=== PATIENT | female | born 1955 | race Caucasian/White ===

== ENCOUNTER → 2017-03-25 | Outpatient (CLI) | payer MEDICAID ==
[~2017-03-25] MED LIST: ADVAIR 500-501 EACH INH; DALIRESP500 MCG PO; DELTASONE1 MG PO; DITROPAN XL10 MG PO; ECOTRIN325 MG PO; EFFEXOR75 MG PO; OXYGEN M-15 INH; PAMELOR25 MG PO; PRILOSEC20 MG PO; PROLIA60 MG/ML SUB-Q; PROVENTIL OR V6.7 GM INH; RISPERDAL2 MG PO; WELLBUTRIN XL150 M1 PO; ZESTRIL2.5 MG PO
== END ==
LOC: LGSMG 15:33
DX: B18.2 Chronic viral hepatitis C (principal)

== ENCOUNTER → 2017-04-03 | Outpatient (CLI) | payer MEDICAID | END | disposition disaster alternative care site (69) | LOC: GRAD 09:41 | DX: B19.20 Unspecified viral hepatitis C without hepatic coma (principal) ==

== ENCOUNTER 2017-06-13 14:58 | Emergency (ER) | payer MEDICAID ==
--- NOTE | ~2017-06-13 | ER ---
PATIENT'S NAME: FRANCINE BRANCH [facility] AGE: 61 Y [address] ROOM: [place] [address] LOCATION: [facility] ADMIT DATE: 06/13/2017 ER/Outpatient Report DISCHARGE DATE: 06/13/2017 FAMILY PHYSICIAN: Brent Marques MD ATTENDING PHYSICIAN: Pauly Stone TIME SEEN: 1520 hours. CHIEF COMPLAINT: Left knee pain. HISTORY OF PRESENT ILLNESS: The patient is a 61-year-old female who states that she fell yesterday, hitting her dorsal knee on the floor. She said it took her a while to get up, but she has been able to bear weight. ALLERGIES: PENICILLIN. CURRENT MEDICATIONS: See her home medications. PAST MEDICAL HISTORY: Includes COPD, history of hepatitis cirrhosis, breast cancer, dependent, history of cervical cancer, right mastectomy. SOCIAL HISTORY: Nonsmoker. She does live alone. Her daughter and granddaughter were with her. REVIEW OF SYSTEMS: HEAD/ENT: No complaints of head or neck pain. RESPIRATORY/CARDIOVASCULAR: Has oxygen on. MUSCULOSKELETAL: Includes dorsal right knee pain. OBJECTIVE FINDINGS: VITAL SIGNS: Blood pressure 146/95, her temperature is 97.1, pulse 109, respiratory rate 20, and O2 sats 96%. GENERAL APPEARANCE: White female. She is alert and cooperative. EXTREMITIES: Exam of her left knee appears to have a slight effusion, quite tender over the patella. Range of motion is somewhat limited. LABORATORY DATA AND X-RAYS: X-rays including sunrise view had no obvious fracture. PATIENT'S NAME: FRANCINE BRANCH [facility] AGE: 61 Y [address] ROOM: [place] [address] LOCATION: [facility] ADMIT DATE: 06/13/2017 ER/Outpatient Report DISCHARGE DATE: 06/13/2017 FAMILY PHYSICIAN: Brent Marques MD ATTENDING PHYSICIAN: Pauly Stone ASSESSMENT: 1. Ground-level fall. 2. Pain, left knee. Strain versus contusion. PLAN: Knee immobilizer. Limit activity. Ice 10 to 15 minutes every couple of hours. The patient did request pain medicine. We did give her Mccarr 5/325 one or two every 6 hours, 20 are prescribed. Follow up with family doctor next week. RAULITO REGALADO FOR MD CHEY CYR/modl /[id number] d: 06/13/172130 t: 06/19/17711, OUTPATIENT REPORT
[2017-06-15] MEDS ORDERED: DITROPAN XL10 MG PO (14:55)
[2017-06-15] MEDS ORDERED: RISPERDAL2 MG PO (14:55)
[2017-06-15] MEDS ORDERED: PRILOSEC20 MG PO (14:56)
[2017-06-15] MEDS ORDERED: DELTASONE1 MG PO (14:56)
[2017-06-15] MEDS ORDERED: PAMELOR25 MG PO (14:57)
[2017-06-15] MEDS ORDERED: ZESTRIL2.5 MG PO (14:58)
[2017-06-15] MEDS ORDERED: WELLBUTRIN XL150 M1 PO (14:58)
[2017-06-15] MEDS ORDERED: ADVAIR 500-501 EACH INH (14:58)
[2017-06-15] MEDS ORDERED: EFFEXOR75 MG PO (14:59)
[2017-06-15] MEDS ORDERED: OXYGEN M-15 INH (15:01)
[2017-06-15] MEDS ORDERED: PROVENTIL OR V6.7 GM INH (15:01)
[2017-06-17] MEDS ORDERED: PROLIA60 MG/ML SUB-Q (08:07)
[2017-06-17] MEDS ORDERED: DALIRESP500 MCG PO (08:07)
[2017-06-17] MEDS ORDERED: ECOTRIN325 MG PO (08:09)
== END 2017-06-13 16:33 | disposition disaster alternative care site (69) ==
LOC: GACC 14:58
PROC: 2W3MX1Z Immobilization of Left Lower Extremity using Splint (ICD-10-PCS; principal; 2017-06-13)
DX: M25.562 Pain in left knee (principal); J44.9 Chronic obstructive pulmonary disease, unspecified; Z88.0 Allergy status to penicillin; Z90.11 Acquired absence of right breast and nipple; W18.30XA Fall on same level, unspecified, initial encounter

== ENCOUNTER → 2017-06-17 | Day surgery (SDC) | payer MEDICAID ==
[~2017-06-17] VITALS: Ht 157.5 cm; Wt 81.2 kg
== END | disposition disaster alternative care site (69) ==
LOC: GPOC 06-15 13:00 → GEND 07:38 → GPOC 13:00
PROC: 0DJ08ZZ Inspection of Upper Intestinal Tract, Via Natural or Artificial Opening Endoscopic (ICD-10-PCS; principal; 2017-06-17)
DX: R13.10 Dysphagia, unspecified (principal); M81.0 Age-related osteoporosis without current pathological fracture; I10 Essential (primary) hypertension; J44.9 Chronic obstructive pulmonary disease, unspecified; F32.9 Major depressive disorder, single episode, unspecified; F41.9 Anxiety disorder, unspecified; Z87.19 Personal history of other diseases of the digestive system; Z85.41 Personal history of malignant neoplasm of cervix uteri; Z85.3 Personal history of malignant neoplasm of breast; Z90.11 Acquired absence of right breast and nipple; Z98.890 Other specified postprocedural states; Z79.899 Other long term (current) drug therapy; Z88.0 Allergy status to penicillin
CPT/HCPCS: J2001; J7030

== ENCOUNTER → 2017-07-08 | Outpatient (CLI) | payer MEDICAID ==
[2017-07-08 15:23] LABS: INR - (THERAPEUTIC) 0.97 (0.92-1.07); PROTIME 10.2 SECONDS (9.8-11.4)
== END ==
LOC: LGSMG 15:12
PROVIDERS: Registered Nurse
DX: R41.0 Disorientation, unspecified (principal)